=== PATIENT | male | born 1985 | race Two or more races ===

== ENCOUNTER 2018-12-08 23:00 | Observation (INO) | payer OTHER ==
[2018-12-08] MEDS ORDERED: Sodium Chloride 0.9% 1,000 ML IV ONE (23:18)
[2018-12-08] MEDS ORDERED: Sodium Chloride 0.9% 10 ML Syringe FLUSH PRN (23:18)
[2018-12-08] MEDS ORDERED: Sodium Chloride 0.9% 2.5 ML Syringe FLUSH PRN (23:18)
[2018-12-08] MEDS ORDERED: Morphine 2 MG/ML Syringe IVPUSH ONE (23:24)
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
[2018-12-08 23:48] LABS: CHLORIDE,CL 105 mmol/L (98-107); SODIUM,NA 145 mmol/L (136-148)
[2018-12-09] MEDS ORDERED: Iopamidol 755 Mg/ML 100 ML Bottle IVPUSH ONE
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
[2018-12-09] MEDS ORDERED: HYDROmorphone 1 MG/ML Syringe IVPUSH ONE (01:04)
[2018-12-09] MEDS ORDERED: HYDROmorphone 1 MG/ML Syringe ONE (01:06)
[2018-12-09] MEDS ORDERED: Lactated Ringers 1,000 ML IV SCH (01:15)
[2018-12-09] MEDS ORDERED: Ketorolac 15 MG/ML SDV IVPUSH PRN (03:08)
[2018-12-09] MEDS: Lactated Ringers 1,000 ML IV SCH ×3 (03:27→16:41)
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
[2018-12-09] MEDS ORDERED: Ketorolac 30 MG/ML SDV IVPUSH PRN (11:30)
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
[2018-12-09] MEDS ORDERED: HYDROmorphone 2 MG Tab PO STA (13:10)
[2018-12-09] MEDS: Docusate Sodium 100 MG Cap PO SCH (13:32)
[2018-12-09] MEDS ORDERED: LORazepam 2 MG/ML SDV IVPUSH PRN (13:48)
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
[2018-12-09] MEDS: Thiamine 100 MG Tab PO SCH (14:56)
[2018-12-09] MEDS: Folic Acid 1 MG Tab PO SCH (14:56)
[2018-12-09] MEDS: HYDROmorphone 2 MG Tab PO PRN ×2 (17:14→21:29)
[2018-12-10] MEDS: Lactated Ringers 1,000 ML IV SCH (00:53)
[2018-12-10] MEDS: HYDROmorphone 2 MG Tab PO PRN (08:23)
[2018-12-10] MEDS: Docusate Sodium 100 MG Cap PO SCH (08:23)
[2018-12-10] MEDS: Thiamine 100 MG Tab PO SCH (08:23)
[2018-12-10] MEDS: Folic Acid 1 MG Tab PO SCH (08:23)
--- NOTE | 2018-12-10 09:10 | PCM.SURGPN ---
- General Info Date of Service: 12/10/18 Functional Status: Reports: Pain Controlled - Review of Systems General: Reports: No Symptoms Cardiovascular: Reports: No Symptoms Gastrointestinal: Reports: No Symptoms (pain much improved w dilaudid; amanda po, self ambulated to bathroom, and voided) - Patient Data Vitals - Most Recent: Last Vital Signs Temp 97.6 F 12/10/18 07:49 Pulse 69 12/10/18 07:49 Resp 16 12/10/18 07:49 BP 142/84 H 12/10/18 07:49 Pulse Ox 97 12/10/18 07:49 Weight - Most Recent: 245 lb 11.2 oz I&O - Last 24 Hours: Intake & Output 12/09/18 12/10/18 12/10/18 22:59 06:59 14:59 Intake Total 2421 1420 Output Total 1750 1100 Balance 671 320 Med Orders - Current: Current Medications Docusate Sodium (Colace) 100 mg PO DAILY [facility] Last Admin: 12/10/18 08:23 Dose: 100 mg Folic Acid (Folic Acid) 1 mg PO DAILY [facility] Last Admin: 12/10/18 08:23 Dose: 1 mg Hydromorphone HCl (Dilaudid) 1 mg PO Q4H PRN PRN Reason: Pain Last Admin: 12/10/18 08:23 Dose: 1 mg Lactated Ringer's (Ringers, Lactated) 1,000 mls @ 125 mls/hr IV ASDIRECTED [facility] Last Admin: 12/10/18 00:53 Dose: 125 mls/hr Ketorolac Tromethamine (Toradol) 30 mg IVPUSH Q8H PRN PRN Reason: Pain Stop: 12/14/18 03:09 Lorazepam (Ativan) 0 mg IVPUSH Q6H PRN; Protocol PRN Reason: CIWAA Sodium Chloride (Saline Flush) 10 ml FLUSH ASDIRECTED PRN PRN Reason: Keep Vein Open Sodium Chloride (Saline Flush) 2.5 ml FLUSH ASDIRECTED PRN PRN Reason: Keep Vein Open Thiamine HCl (Vitamin B-1) 100 mg PO DAILY [facility] Last Admin: 12/10/18 08:23 Dose: 100 mg Discontinued Medications Hydromorphone HCl (Dilaudid) 1 mg IVPUSH ONETIME ONE Stop: 12/09/18 01:05 Last Admin: 12/09/18 01:13 Dose: 1 mg Hydromorphone HCl (Dilaudid) Confirm Administered Dose 1 mg .ROUTE .STK-MED ONE Stop: 12/09/18 01:07 Last Admin: 12/09/18 01:14 Dose: Not Given Hydromorphone HCl (Dilaudid) 2 mg PO NOW STA Stop: 12/09/18 13:11 Last Admin: 12/09/18 13:26 Dose: 2 mg Sodium Chloride (Normal Saline) 1,000 mls @ 999 mls/hr IV STAT ONE Stop: 12/09/18 00:18 Last Admin: 12/08/18 23:35 Dose: 999 mls/hr Lactated Ringer's (Ringers, Lactated) 1,000 mls @ 150 mls/hr IV ASDIRECTED [facility] Last Admin: 12/09/18 01:13 Dose: 150 mls/hr Iopamidol (Isovue-370 (76%)) 100 ml IVPUSH ONETIME ONE Stop: 12/09/18 00:01 Last Admin: 12/09/18 00:02 Dose: 100 ml Ketorolac Tromethamine (Toradol) 30 mg IVPUSH Q8H PRN PRN Reason: Pain Stop: 12/14/18 03:09 Last Admin: 12/09/18 03:28 Dose: 30 mg Morphine Sulfate (Morphine) 2 mg IVPUSH ONETIME ONE Stop: 12/08/18 23:25 Last Admin: 12/08/18 23:32 Dose: 2 mg - Exam General: Alert, Oriented, Cooperative, No Acute Distress GI/Abdominal Exam: Soft, Non-Tender, No Distention (motor strength, 5+/5+ B upper ext and lower ext) - Problem List Review Problem List Initiated/Reviewed/Updated: Yes - My Orders Last 24 Hours: Active Orders 24 hr Category Date Time Status CIWAA Assessment [RC] Q4H Care 12/09/18 13:57 Active Notify Provider Consults [RC] ASDIRECTED Care 12/09/18 13:13 Active Ready for Discharge [RC] PER UNIT ROUTINE Care 12/10/18 09:06 Active Consult to Physician [CONS] Stat Cons 12/09/18 13:12 Active Clear Liquid Diet [DIET] Diet 12/09/18 Lunch Active Docusate Sodium [Colace] Med 12/09/18 13:15 Active 100 mg PO DAILY Folic Acid Med 12/09/18 14:00 Active 1 mg PO DAILY HYDROmorphone [Dilaudid] Med 12/09/18 13:11 Active 1 mg PO Q4H PRN Ketorolac [Toradol] Med 12/09/18 11:30 Active 30 mg IVPUSH Q8H PRN LORazepam [Ativan] Med 12/09/18 13:48 Active See Protocol IVPUSH Q6H PRN Thiamine [Vitamin B-1] Med 12/09/18 14:00 Active 100 mg PO DAILY Medication Orders Docusate Sodium (Colace) 100 mg PO DAILY [facility] Last Admin: 12/10/18 08:23 Dose: 100 mg Admin: 12/09/18 13:32 Dose: 100 mg Folic Acid (Folic Acid) 1 mg PO DAILY [facility] Last Admin: 12/10/18 08:23 Dose: 1 mg Admin: 12/09/18 14:56 Dose: 1 mg Hydromorphone HCl (Dilaudid) 1 mg PO Q4H PRN PRN Reason: Pain Last Admin: 12/10/18 08:23 Dose: 1 mg Admin: 12/09/18 21:29 Dose: 1 mg Admin: 12/09/18 17:14 Dose: 1 mg Lactated Ringer's (Ringers, Lactated) 1,000 mls @ 125 mls/hr IV ASDIRECTED [facility] Last Admin: 12/10/18 00:53 Dose: 125 mls/hr Infusion: 12/10/18 00:41 Dose: 125 mls/hr Admin: 12/09/18 16:41 Dose: 125 mls/hr Infusion: 12/09/18 16:25 Dose: 125 mls/hr Admin: 12/09/18 08:25 Dose: 125 mls/hr Infusion: 12/09/18 08:25 Dose: 125 mls/hr Admin: 12/09/18 03:27 Dose: 125 mls/hr Ketorolac Tromethamine (Toradol) 30 mg IVPUSH Q8H PRN PRN Reason: Pain Stop: 12/14/18 03:09 Lorazepam (Ativan) 0 mg IVPUSH Q6H PRN; Protocol PRN Reason: CIWAA Sodium Chloride (Saline Flush) 10 ml FLUSH ASDIRECTED PRN PRN Reason: Keep Vein Open Sodium Chloride (Saline Flush) 2.5 ml FLUSH ASDIRECTED PRN PRN Reason: Keep Vein Open Thiamine HCl (Vitamin B-1) 100 mg PO DAILY [facility] Last Admin: 12/10/18 08:23 Dose: 100 mg Admin: 12/09/18 14:56 Dose: 100 mg - Assessment Assessment (Free Text/Narrative):: pain improved much better w dilaudid; amanda po, vss, self ambulate, voided; home on pain script and stool softener; script for later cxr in two days; fu w local provider 1 wk, or if clinically changed, nausea/vomitting/weakness - Plan Plan (Free Text/Narrative):: pain improved much better w dilaudid; amanda po, vss, self ambulate, voided; home on pain script and stool softener; script for later cxr in two days; fu w local provider 1 wk, or if clinically changed, nausea/vomitting/weakness
--- NOTE | 2018-12-10 09:21 | PCM.DCSUM1 ---
Discharge Summary - Hospital Course Free Text/Narrative:: admitted via ed for trauma observation, pls refer to admitting h/p for details; pt trauma workedup, -ve for ct head/spine/abd/pelvis, pt had a 1 mm displaced mid sternum fx; pain management was the issue at first; and also alcohol onboard 179; pt get pain relieved w dilaudid, amanda po, self ambulated during hospital course. Diagnosis: Stroke: No - Discharge Data Discharge Date: 12/10/18 Discharge Disposition: Home, Self-Care 01 Condition: Stable - Patient Summary/Data Consults: Consultations 12/09/18 13:12 Consult to Physician [CONS] Stat for alcohol use Hospital Course: dilaudid for pain management, and alcohol use advice from hospitalist consult; pt self ambulated, pain managed; amanda po, voided; abd exam benign; and motor 5+/5 + B UE/LE - Patient Instructions Diet: Regular Diet as Tolerated Activity: As Tolerated, No Strenuous Activities Driving: Do Not Drive Showering/Bathing: May Shower Notify Provider of: Fever, Increased Pain, Nausea and/or Vomiting - Discharge Plan Home Medications: Home Meds Blood Pressure Medication 1 tab PO DAILY 12/08/18 [History] Patient Handouts: Concussion, Adult, [id number], Alcohol Intoxication, Easy- to-Read, Sternal Fracture, Hydromorphone tablets, Docusate capsules, Blunt Chest Trauma Referrals: Steven Hopkins MD [Physician] - (Follow up in 2 weeks.) - Discharge Summary/Plan Comment DC Time >30 min.: Yes - Patient Data Vitals - Most Recent: Last Vital Signs Temp 97.6 F 12/10/18 07:49 Pulse 69 12/10/18 07:49 Resp 16 12/10/18 07:49 BP 142/84 H 12/10/18 07:49 Pulse Ox 97 12/10/18 07:49 Weight - Most Recent: 245 lb 11.2 oz I&O - Last 24 hours: Intake & Output 12/09/18 12/10/18 12/10/18 22:59 06:59 14:59 Intake Total 2421 1420 Output Total 1750 1100 Balance 671 320 Med Orders - Current: Current Medications Docusate Sodium (Colace) 100 mg PO DAILY [facility] Last Admin: 12/10/18 08:23 Dose: 100 mg Folic Acid (Folic Acid) 1 mg PO DAILY [facility] Last Admin: 12/10/18 08:23 Dose: 1 mg Hydromorphone HCl (Dilaudid) 1 mg PO Q4H PRN PRN Reason: Pain Last Admin: 12/10/18 08:23 Dose: 1 mg Lactated Ringer's (Ringers, Lactated) 1,000 mls @ 125 mls/hr IV ASDIRECTED [facility] Last Admin: 12/10/18 00:53 Dose: 125 mls/hr Ketorolac Tromethamine (Toradol) 30 mg IVPUSH Q8H PRN PRN Reason: Pain Stop: 12/14/18 03:09 Lorazepam (Ativan) 0 mg IVPUSH Q6H PRN; Protocol PRN Reason: CIWAA Sodium Chloride (Saline Flush) 10 ml FLUSH ASDIRECTED PRN PRN Reason: Keep Vein Open Sodium Chloride (Saline Flush) 2.5 ml FLUSH ASDIRECTED PRN PRN Reason: Keep Vein Open Thiamine HCl (Vitamin B-1) 100 mg PO DAILY [facility] Last Admin: 12/10/18 08:23 Dose: 100 mg Discontinued Medications Hydromorphone HCl (Dilaudid) 1 mg IVPUSH ONETIME ONE Stop: 12/09/18 01:05 Last Admin: 12/09/18 01:13 Dose: 1 mg Hydromorphone HCl (Dilaudid) Confirm Administered Dose 1 mg .ROUTE .STK-MED ONE Stop: 12/09/18 01:07 Last Admin: 12/09/18 01:14 Dose: Not Given Hydromorphone HCl (Dilaudid) 2 mg PO NOW STA Stop: 12/09/18 13:11 Last Admin: 12/09/18 13:26 Dose: 2 mg Sodium Chloride (Normal Saline) 1,000 mls @ 999 mls/hr IV STAT ONE Stop: 12/09/18 00:18 Last Admin: 12/08/18 23:35 Dose: 999 mls/hr Lactated Ringer's (Ringers, Lactated) 1,000 mls @ 150 mls/hr IV ASDIRECTED [facility] Last Admin: 12/09/18 01:13 Dose: 150 mls/hr Iopamidol (Isovue-370 (76%)) 100 ml IVPUSH ONETIME ONE Stop: 12/09/18 00:01 Last Admin: 12/09/18 00:02 Dose: 100 ml Ketorolac Tromethamine (Toradol) 30 mg IVPUSH Q8H PRN PRN Reason: Pain Stop: 12/14/18 03:09 Last Admin: 12/09/18 03:28 Dose: 30 mg Morphine Sulfate (Morphine) 2 mg IVPUSH ONETIME ONE Stop: 12/08/18 23:25 Last Admin: 12/08/18 23:32 Dose: 2 mg
== END 2018-12-10 10:00 | disposition home or self-care (01) ==
LOC: MW.ED 23:00 → MW.MS 12-09 01:06
PROVIDERS: ADMIT Surgery; ATTEND Surgery
DX: S06.891A Other specified intracranial injury with loss of consciousness of 30 minutes or less, initial encounter (principal); S22.20XA Unspecified fracture of sternum, initial encounter for closed fracture; I10 Essential (primary) hypertension; E66.01 Morbid (severe) obesity due to excess calories; Z68.41 Body mass index [BMI] 40.0-44.9, adult; Y99.8 Other external cause status; V86.09XA Driver of other special all-terrain or other off-road motor vehicle injured in traffic accident, initial encounter; Y90.6 Blood alcohol level of 120-199 mg/100 ml
CPT/HCPCS: 70450; 71046; 71260; 72125; 72128; 74177; 80053; 80305; 81003; 83690; 85025; 85610; 93005; 96361; 96365; 96375; 99285; A9270; G0480; J1170; J1885; J2270; J7040; J7120; Q9967; 99284